=== PATIENT | male | born 1985 | race Caucasian/White ===

== ENCOUNTER 2017-06-21 20:42 | Inpatient (IN) | payer OTHER ==
[~2017-06-21] VITALS: Ht 170.2 cm; Wt 72.0 kg
[2017-06-21 20:46] VITALS: BP 117/71; PULSE 84; RESP 16; O2SAT 100
[2017-06-21] MEDS ORDERED: HYDROmorphone 1 mg/mL Inj IVPUSH PRN ×2 (20:55→23:50)
[2017-06-21] MEDS ORDERED: Ondansetron 2 mg/mL 2 mL Inj IVPUSH PRN ×2 (20:55→23:50)
--- NOTE | 2017-06-21 21:05 | ED.REPORT ---
HPI-Abd Pain M Under 40 Date of Service Jun 21, 2017 ED Provider: Dakota Gonzales MD Patient is a 32 year old male who presents to the ED complaining of lower abdominal pain onset this morning. Associated symptoms include nausea, vomiting and chills. He denies fever, diarrhea, or other symptoms at this time. The patient had taken Zofran earlier, which helped with the nausea but he was still experiencing pain. The pain been getting progressively worse since 1500. Patient states that he had a cold about a week ago but those symptoms had resolved until this morning. Nursing Notes Stated Complaint: ABDOMINAL PAIN Chief Complaint: Male Abdominal Pain Nursing Notes Reviewed: Yes Allergies: Coded Allergies: No Known Allergies (Unverified , 06/21/17) General Time Seen by MD: 21:11 Chief Complaint Abdominal pain Hx Obtained From: Patient Arrived By: Walk-in Sudden in Onset?: Yes Onset Occurred: 5 - 8 hours ago Symptom Duration: Since onset Location: : Abdomen lower Quality: Painful Severity: Current: Moderate Associated with: Reports: Chills, Nausea, Vomiting Similar Sx Previous: No Past Medical History Past Medical History none reported Past Surgical History heart ablation Social History Alcohol Use: Denies alcohol use Drug Use: Denies drug use Other Social History: Good social support, From out of town, Visiting locally Ambulatory Status Independent Review of Systems Constitutional: Reports: Chills, Denies: Fever Respiratory: Denies: Non-productive cough, Shortness of breath GI: Reports: Abdominal pain, Nausea, Vomiting, Denies: Diarrhea Complete sys rev & neg: except as marked. Skin: Denies Itching, Denies Rash Neurologic: Denies: Headache, Numbness, Weakness Physical Exam Initial Vital Signs Vital Signs (First) Date Time Temp Pulse Resp B/P Pulse Ox O2 Delivery O2 Flow Rate FiO2 06/21/17 20:46 37.4 84 16 117/71 100 Room Air Initial VS: Reviewed, Vital signs normal General/Constitutional: Awake, Alert Respiratory / Chest: Atraumatic, Breath sounds NL, Breath sounds = bilat, No respiratory distress Cardiovascular: Heart rate NL, Regular rhythm, Heart sounds NL Abdomen: Atraumatic, Soft Tenderness/Guarding/Rebound: Positive: Tender LLQ..., Tender RLQ... positive heel tap prior to arrival Back: Atraumatic, Non-tender Head / Eyes: Atraumatic, Normocephalic, PERRL, EOMI Neurologic: Oriented X3, Speech NL Upper Extremity / MS: Atraumatic, Full range of motion Skin: Atraumatic, Color NL, No rash, Warm, Dry Psychiatric: Affect NL, Mood NL Interpretation & Diagnostics Lab Results Interpretation Result Diagram: 06/21/17212806/21/172128 Test 06/21/17 21:29 White Blood Count 18.9th/mm3 (3.8-10.1) Red Blood Count 4.98mil/mm3 (4.40-5.80) Hemoglobin 14.8g/dL (13.8-17.2) Hematocrit 42.4% (41.0-50.0) Mean Corpuscular Volume 85.1fL (81-100) Mean Corpuscular Hemoglobin 29.7pg (27.0-35.0) Mean Corpuscular Hemoglobin Concent 34.9% (32.0-37.0) Red Cell Distribution Width 11.9% (12.3-15.4) Platelet Count 206bil/L (150-400) Neutrophils (%) (Auto) 90.5% (40-74) Lymphocytes (%) (Auto) 3.7% (14-46) Monocytes (%) (Auto) 5.4% (4-12) Eosinophils (%) (Auto) 0% (0-5) Basophils (%) (Auto) 0.1% (0-3) Sodium Level 136mEq/L (134-144) Potassium Level 4.1mEq/L (3.5-5.2) Chloride Level 96mEq/L (97-108) Carbon Dioxide Level 24mmol/L (18-29) Blood Urea Nitrogen 12mg/dL (6-20) Creatinine 1.02mg/dL (0.76-1.27) Estimat Glomerular Filtration Rate 90mL/min (>59) Glucose Level 144mg/dL (60-99) Calcium Level 9.6mg/dL (8.5-10.1) Magnesium Level 1.5mg/dL (1.6-2.6) Total Bilirubin 1.2mg/dL (0.0-1.2) Aspartate Amino Transf (AST/SGOT) 24U/L (0-50) Alanine Aminotransferase (ALT/SGPT) 10U/L (0-44) Alkaline Phosphatase 61U/L (25-150) Total Protein 7.8g/dL (6.4-8.4) Albumin 4.5g/dL (3.4-5.0) Lipase 57U/L (13-60) Lab Results Interpretation: Elevated white blood count CT Abd / Pelvis Interpretation CONCLUSION: Acute appendicitis without signs of perforation. These findings were discussed with Dr. Gonzales on 06/21/17 at 2240 Electronically signed by Mignon Arboleda MD Study type: Abdominal CT no contrast Interpretation / Wet Read by: Interpret - Radiologist Re-Eval/Medical Decision Med Decision/Clinical Course 32-year-old male with nausea and vomiting starting this morning at 0300 hrs. and then progressing to right lower quadrant abdominal pain by this evening. He has 19,000 white count and nonruptured acute appendicitis. Case was discussed with Dr. Crocker patient will be taken to the operating room tonight. Re-Evaluation/Progress : Time of Eval: 22:50 Re-Evaluation/Progress Note: Discussed results and plan for admit. Patient understands and agrees to plan. All questions were addressed. Consultation : Referral / Consult Name: Kt Crocker MD Consulted With: Surgeon Call Returned at: 22:45 Apns: Agrees with eval, Agrees with plan, Accepts admit Counseled Regarding: Diagnosis, Lab results, Need for admission Patient Discharge & Departure Primary Impression: Acute appendicitis Acute appendicitis type: unspecified acute appendicitis type Qualified Code: K35.80 - Unspecified acute appendicitis Additional Impression: Leukocytosis Leukocytosis type: unspecified Qualified Code: D72.829 - Elevated white blood cell count, unspecified Disposition: ADMITTED TO HOSPITAL Discharge Condition All VS Reviewed: Yes Condition: Stable Scribe Attestation Portions of this note were transcribed by Annmarie Nino. I, Dr. Gonzales personally performed the history, physical exam and medical decision-making; I reviewed and confirmed the accuracy of the information in the transcribed note. Signed by: Annmarie Osorio, 06/21/17 Dakota Gonzales MD Jun 21, 2017 21:05 Anushka Nino Jun 21, 2017 21:17
[2017-06-21] MEDS ORDERED: HYDROmorphone 0.5 mg/0.5 mL iSecure Syringe IVPUSH PRN (21:15)
[2017-06-21 21:33] LABS: BASOPHILS % (AUTO) 0.1 % (0-3); EOSINOPHILS % (AUTO) 0 % (0-5); MONOCYTES % (AUTO) 5.4 % (4-12); Mean Corpuscular Hemoglobin 29.7 pg (27.0-35.0); Mean Corpuscular Volume 85.1 fL (81-100); NEUTROPHILS % (AUTO) 90.5 % (40-74); Platelet Count 206 bil/L (150-400)
[2017-06-21 21:55] LABS: Magnesium 1.5 mg/dL (1.6-2.6)
[2017-06-21 22:52] VITALS: BP 106/57; PULSE 87; RESP 20; O2SAT 98
[2017-06-21] MEDS ORDERED: Cefotetan Inj 2,000 MG in IV Premix 1 EACH IV ONE (23:20)
[2017-06-21 23:41] VITALS: BP 106/57; PULSE 87; RESP 20; O2SAT 98
[2017-06-21] MEDS ORDERED: Lactated Ringer's 500 ML IV PRN (23:46)
[2017-06-21] MEDS ORDERED: Lactated Ringer's 1,000 ML IV SCH (23:46)
--- NOTE | 2017-06-21 23:49 | PCM.HPANE ---
Patient Data Date of Service: Jun 21, 2017 Surgeon Admitting Provider:Kt Crocker MD Attending Provider:Kt Crocker MD Primary Care Physician:Ele Other Provider:Jonathan Alston Anesthesia Reason for Visit Acute Appendicitis Ht/WT & BMI Height (Feet): 5 Height (Inches): 7 Weight (Kilograms): 70.45 Body Mass Index Allergies Coded Allergies: No Known Allergies (Unverified , 06/21/17) Past Anesthesia History Anesthesia History: Denies:: Abnormal Airway, Anesthesia Reactions, Difficult Intubation, Fam Anesthesia Reaction, Fam Malignant Hypertherm, Malignant Hyperthermia History History of ENT Problems?: No HEENT History: Denies:: Abnormal Airway Cataracts Difficult Intubation Dysphagia Glaucoma Hearing Problem Sinus Problem TMJ Denture Type: None Teeth Condition: Within Normal Limits Hx of Heart Problems?: No Cardiovascular History: Denies:: AICD Abdominal Aortic Aneurism Atrial Fibrillation Cardiac Surgery Chest Pain Congestive Heart Failure Coronary Artery Disease Edema Heart Murmur Hypertension Irregular Heartbeat Pacemaker Peripheral Vascular Rheumatic Fever Thrombophlebitis Valvular Heart Disease Hx of Respiratory Problem?: No Respiratory History: Denies:: Asthma COPD Chest Surgery Cough Dyspnea Emphysema Hemoptysis Oxygen Administration Pneumonia Pulmonary Embolism Tuberculosis Use of C-PAP Machine Use of Inhalers / NEBS Hx Neurologic Problems?: No Hx of GI Problems?: Yes Gastrointestinal History: Denies:: Cirrhosis Diverticulitis Gall Bladder Disease Gastroesphageal Reflux Gastrointestinal Bleeding Heartburn Hepatitis Hiatal Hernia Liver Disease Rectal Bleeding Other History/Comment Acute abdomen on admission Hx of Problems?: No Genitourinary History: Denies:: HX of Hemodialysis Kidney Stones Urinary Tract Infection Male Hx: Denies:: Prostate Problems Scrotal Mass Testicular Surgery Hx Musculoskeletal Problems?: No Hx Surgeries?: No Hx Alcohol Use: NoHx Substance Use: No Smoking Status: Smoker Current Status UNK Stop/Bang JOHNSON Risk Assessment: Low Risk, <3 Yes Risk Assessment Category Category 1A: Patient has history of documented sleep apnea, and HAS NOT received any narcotic, sedative or anesthesia administration during this stay. Category 1B: Patient has history of documented sleep apnea, and HAS received any narcotic , sedative or anesthesia administration during this stay Category 2: Patient has SUSPECTED Obstructive Sleep Apnea, and HAS received any narcotic , sedative or anesthesia administration during this stay. Category 3: Patient has SUSPECTED Obstructive Sleep Apnea and HAS NOT received narcotic, sedative or anesthesia administration during this stay. Category 4: Outpatient in Procedural Areas with known sleep apnea or who screen positive for High Risk via the STOP/BANG questionnaire. Exam Exam Vital Signs Vital Signs Date Time Temp Pulse Resp B/P Pulse Ox O2 Delivery O2 Flow Rate FiO2 06/21/17 22:52 87 20 106/57 98 Room Air 06/21/17 20:46 37.4 84 16 117/71 100 Room Air General Appearance: Alert, Oriented X3, Cooperative, No Acute Distress HEENT/AIRWAY: MP 2 Lungs: Clear to Auscultation, Normal Air Movement Heart: Exam Unremarkable, Regular Rate/Rhythm, No Murmurs/Rubs/Gallops Meds/Labs/Diagnostics Labs Test 06/21/17 21:29 White Blood Count 18.9th/mm3 (3.8-10.1) Red Blood Count 4.98mil/mm3 (4.40-5.80) Hemoglobin 14.8g/dL (13.8-17.2) Hematocrit 42.4% (41.0-50.0) Mean Corpuscular Volume 85.1fL (81-100) Mean Corpuscular Hemoglobin 29.7pg (27.0-35.0) Mean Corpuscular Hemoglobin Concent 34.9% (32.0-37.0) Red Cell Distribution Width 11.9% (12.3-15.4) Platelet Count 206bil/L (150-400) Neutrophils (%) (Auto) 90.5% (40-74) Lymphocytes (%) (Auto) 3.7% (14-46) Monocytes (%) (Auto) 5.4% (4-12) Eosinophils (%) (Auto) 0% (0-5) Basophils (%) (Auto) 0.1% (0-3) Sodium Level 136mEq/L (134-144) Potassium Level 4.1mEq/L (3.5-5.2) Chloride Level 96mEq/L (97-108) Carbon Dioxide Level 24mmol/L (18-29) Blood Urea Nitrogen 12mg/dL (6-20) Creatinine 1.02mg/dL (0.76-1.27) Estimat Glomerular Filtration Rate 90mL/min (>59) Glucose Level 144mg/dL (60-99) Calcium Level 9.6mg/dL (8.5-10.1) Magnesium Level 1.5mg/dL (1.6-2.6) Total Bilirubin 1.2mg/dL (0.0-1.2) Aspartate Amino Transf (AST/SGOT) 24U/L (0-50) Alanine Aminotransferase (ALT/SGPT) 10U/L (0-44) Alkaline Phosphatase 61U/L (25-150) Total Protein 7.8g/dL (6.4-8.4) Albumin 4.5g/dL (3.4-5.0) Lipase 57U/L (13-60) Plan Impression Patient chart reviewed, patient interviewed and anesthestic plan with risks, benefits, and alternatives discussed, and informed consent obtained. NPO per Anesth. Guidelines: Yes ASA Physical Status: ASA2 Plus Emergency Anesthetic Plan: GA Bene/Risks/Altern/Consents: Yes HP Complete Prior to Induction: Yes Dave Munoz DO Jun 21, 2017 23:49
[2017-06-21] MEDS ORDERED: Phenylephrine 10,000 mCg/mL Inj IVPUSH PRN (23:50)
[2017-06-21] MEDS ORDERED: Atropine 0.4 mg/mL Inj IVPUSH PRN (23:50)
[2017-06-21] MEDS ORDERED: EPHEDrine Sulfate 50 mg/mL Inj IVPUSH PRN (23:50)
[2017-06-21] MEDS ORDERED: Labetalol 5 mg/mL 20 mL Inj IV PRN (23:50)
[2017-06-21] MEDS ORDERED: Dexamethasone 4 mg/mL Inj IVPUSH PRN (23:50)
[2017-06-21] MEDS ORDERED: MetoCLOpramide 5 mg/mL 2 mL Inj IVPUSH PRN (23:50)
[2017-06-21] MEDS ORDERED: fentaNYL-PF 50 mCg/mL 2 mL Inj IVPUSH PRN (23:50)
--- NOTE | 2017-06-21 23:54 | HP ---
[address] [address] HISTORY AND PHYSICAL PATIENT: JAY RADER : 1985 MR#: [id number] ADMIT: 06/21/2017 JOB ID: [id number] CHIEF COMPLAINT: The patient is a 32-year-old man with probable appendicitis. HISTORY OF PRESENT ILLNESS: The [place] from [place], is friends with one of our ER physicians who treated him for nausea with Zofran beginning this morning. Around 3 p.m., he continued to be nauseated and as well had abdominal pain, and he was brought to our emergency department where a CT scan has suggested appendicitis. PAST MEDICAL HISTORY: Negative per the patient, no previous surgery, though there is a record in the ED note of a cardiac surgical ablation. MEDICATIONS: None. ALLERGIES: None. SOCIAL HISTORY: The patient lives up in [facility]. 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 He rode down with some other people from [place] but will get a ride back from an [place] friend. FAMILY HISTORY: Noncontributory. REVIEW OF SYSTEMS: Negative per ED note. PHYSICAL EXAMINATION: Uncomfortable man in no acute distress. Vital signs: Recorded in the chart. His temperature is 37.4, his pulse is in the 80s. His blood pressure was recorded at 117/71. His sclerae are clear. His neck is supple. Lungs are clear. Heart sounds are regular. He has markedly lower abdominal tenderness, by report. LABORATORY DATA: White count is 18.9, hematocrit is 42, platelet count is 206. Chemistries are normal. Glucose is 144, magnesium was 1.5. LFTs are normal. Lipase is normal. CT scan: I have reviewed the images as well as the date night caregiver report. The report describes the appendix coursing to the deep right pelvis with a distended appendix of 1.22 cm and periappendiceal fat stranding with the conclusion of acute appendicitis without signs of perforation. I have reviewed the films myself. I concur that there is some periappendiceal fat stranding, though I am also concerned that there appears to be calcifications in the GI tract lumen that from the emergency department tells me the date night caregiver radiologist whom he discussed the case with felt that these were some sort of ingested material. We can see these up in the ascending colon and cecum, and it is possible that there is an appendicolith though it is difficult to say exactly which loop is the base of the appendix. IMPRESSION AND PLAN: Probable appendicitis. I have recommended a laparoscopic appendectomy. Patient agrees to proceed. We will move ahead tonight. He will receive perioperative cefotetan.
[2017-06-22] VITALS (22 sets, daily range): BP systolic 96–129; BP diastolic 40–58; PULSE 60–83; RESP 10–17; O2SAT 93–100
[2017-06-22] MEDS ORDERED: Bupivacaine-MPF 0.5% 30 mL Inj INFILTRATE ONE (00:35)
[2017-06-22] MEDS ORDERED: Lactated Ringer's 1,000 ML IV ONE ×2 (00:35→02:15)
[2017-06-22] MEDS ORDERED: Ondansetron 2 mg/mL 2 mL Inj IVPUSH PRN (01:05)
[2017-06-22] MEDS ORDERED: diphenhydrAMINE 25 mg Capsule PO PRN (01:05)
[2017-06-22] MEDS ORDERED: HYDROmorphone 0.5 mg/0.5 mL iSecure Syringe IV PRN (01:05)
[2017-06-22] MEDS ORDERED: Polyethylene Glycol (PEG) 17 Gm Powder PO ONE (01:05)
[2017-06-22] MEDS ORDERED: Acetaminophen IV 1,000 MG in IV Premix 1 EACH IV PRN (01:05)
--- NOTE | 2017-06-22 01:45 | OP ---
[address] [address] OPERATIVE REPORT PATIENT: JAY RADER : 1985 MR#: [id number] ADMIT: 06/21/2017 JOB ID: [id number] DATE OF SURGERY: 06/22/2017 PREOPERATIVE DIAGNOSIS(ES): Appendicitis. POSTOPERATIVE DIAGNOSIS(ES): Perforated appendicitis. SURGEON: Kt Crocker MD PROCEDURE: Laparoscopic appendectomy for ruptured appendicitis. INDICATIONS: A 32-year-old male, who presents with signs and symptoms of appendicitis. FINDINGS: Acute appendicitis with perforation. PROCEDURE IN DETAIL: Patient brought to the operating room. General anesthetic was administered. The SCOPE protocol was followed. He had received perioperative cefotetan. Surgical time-out was performed. The abdomen was prepped and draped in sterile fashion, and we obtained access with a Veress needle. Three ports were placed. Upon surveillance of the abdomen, there was free fluid in the pelvis, and a great deal of fibrinous exudate in the pelvis and in the right lower quadrant. We elevated the appendix, and there was a central area of necrosis with perforation but without gross feculent soilage. We elevated the appendix and used a single firing of the endoscopic stapler to go across the base of the appendix and the mesoappendix. Specimen was placed in a bag and removed without wound contamination. We touched up the hemostasis on the mesoappendix with cautery. Our staple line was intact. We now suctioned out all of the fluid and then proceeded with a copious amount of irrigation, irrigating out most of the fibrinous exudate and removing what appeared to be contaminated fluid. After copious irrigation, removed all our irrigation and placed a drain going down past appendiceal stump into the pelvis and brought that out through the left lower quadrant incision that was secured with a nylon suture. We now let our CO2 out after removing our ports under laparoscopic vision. I secured the drain with a nylon suture and placed it to bulb suction. I closed the 12-mm port at the fascial level with an 0 Vicryl followed by subcuticular Monocryl. Dressings were placed. The patient was transferred to the recovery room after extubation.
[2017-06-22] MEDS ORDERED: Piperacillin-Tazo 3.375 Gm Inj 3.375 GM in Dextrose 5% Minibag Plus 50 ML IV ONE (02:00)
[2017-06-22] MEDS: Lactated Ringer's 1,000 ML IV SCH ×3 (03:05→21:05)
--- NOTE | 2017-06-22 04:19 | NUR ---
post-op pt arrived to [facility] room 1026 at 0320. he was able to scoot himself from the gurney to the hospital bed unassisted. per PACU report pt took some time to wake up in recovery and they felt pt was narcotic naive and they recommended using narcotics with caution. upon arrival pt awake and oriented, able to follow commands and answer all questions but does still appear sedated. when pt falls asleep he is requiring 4L of 02 to keep oxygen level above 92% and respirations are 10-12/min. PSYCHIATRIC THERAPIST is on to monitor oxygen levels. nurse explained the importance of coughing and deep breathing and pt demonstrated.pt denies any pain so no further narcotics will be given at this time. he is tolerating clear liquids without any sign of nausea. admit complete. pt oriented to room, call light and bed controls. care continues.
[2017-06-22 06:24] LABS: BASOPHILS % (AUTO) 0 % (0-3); EOSINOPHILS % (AUTO) 0 % (0-5); MONOCYTES % (AUTO) 4.4 % (4-12); Mean Corpuscular Hemoglobin 30.2 pg (27.0-35.0); Mean Corpuscular Volume 86.5 fL (81-100); NEUTROPHILS % (AUTO) 92.4 % (40-74); Platelet Count 170 bil/L (150-400)
--- NOTE | 2017-06-22 07:20 | NUR ---
pt 02 titrated down to 2L. SP02 MID 90s at this time. will continue to titrate.
--- NOTE | 2017-06-22 08:20 | DRSVH ---
PROCEDURE: CT ABDOMEN AND PELVIS WITH CONTRAST ([id number]) INDICATIONS: RLQ abd pain TECHNIQUE: After the administration of intravenous contrast, 5 mm thick sections acquired from the diaphragm to the symphysis. 5 mm coronal and sagittal reformats were acquired. For radiation dose reduction, the following was used: automated exposure control, adjustment of mA and/or kV according to patient siz e. COMPARISON: None. FINDINGS: Image quality: Excellent. ABDOMEN: Lung bases: Lung bases are clear. Heart size is normal. Solid organs: Liver and spleen are normal in size and enhancement. A small, approximately 6 mm in di ameter hypoattenuating lesion noted in the spleen which likely represents a small cyst or hemangioma. Gallbladder is within normal limits. Biliary system is non dilated. Pancreas enhances normally. No adrenal nodules. Kidneys demonstrate normal size and enhancement, without hydronephrosis. Peritoneum and bowel: Bowel loops demonstrate normal wall thickness and caliber. No free air. The a ppendix is enlarged 1.2 cm in diameter at its base. Mild inflammatory changes noted just to the appen uday. Small amount of free fluid noted in the lower pelvis. Nodes and vessels: No retroperitoneal or mesenteric adenopathy by size criteria. Aorta and inferior vena cava are normal in size. Miscellaneous: No ventral hernias. PELVIS: Genitourinary: Bladder wall thickness is normal. Miscellaneous: No inguinal hernias or adenopathy. Bones: No suspicious bony lesions. No vertebral body compression fractures. IMPRESSION: 1. Findings compatible with acute appendicitis. 2. No free air. 3. Small amount of free fluid in the lower pelvis. Dictated by: Cassandra Rodgers MD, PhD on 06/22/2017 at 8:12 Approved by: Cassandra Rodgers MD, PhD on 06/22/2017 at 8:19
[2017-06-22] MEDS ORDERED: Rocuronium 10 mg/mL 5 mL Inj ONE (10:11)
[2017-06-22] MEDS ORDERED: HYDROmorphone 1 mg/mL Inj ONE (10:11)
[2017-06-22] MEDS ORDERED: Propofol 10,000 mCg/mL 20 mL Inj ONE (10:11)
[2017-06-22] MEDS ORDERED: fentaNYL-PF 50 mCg/mL 2 mL Inj ONE (10:11)
[2017-06-22] MEDS ORDERED: Ketamine 10 mg/mL 20 mL Inj ONE (10:11)
[2017-06-22] MEDS: Piper-Tazo 3.375 Gm/50 mL D5W Minibag Plus - Q8H over 4 hrs IV SCH ×4 (10:12→17:50)
--- NOTE | 2017-06-22 11:38 | PCM.PNSURG ---
Subjective Date of Service: Jun 22, 2017 Visit Information: Reason for Visit Acute Appendicitis Surgery/Surgery Date LAP APPY 06/22/17 Post-Op Day # Date of Admission: Jun 21, 2017 at 23:31 Hospital Day # Subjective: No acute overnight events Pain improved compared to pre-op No nausea or vomiting Tolerating clear liquids Has not yet voided Afebrile but feels warm/diaphoretic Objective Vital Sign- Last 8 Hours Date Time Temp Pulse Resp B/P Pulse Ox O2 Delivery O2 Flow Rate FiO2 06/22/17 08:51 79 16 96 Room Air 06/22/17 08:37 36.6 71 16 96/57 97 Room Air 06/22/17 08:27 Supplement Oxygen 06/22/17 05:44 36.8 73 16 119/56 Nasal Cannula 2.00 99 Intake and Output- Last 8 Hour 06/22/17 Cumulative From/Thru 07:00 06/21/17 20:46 - 06/22/17 06:19 Intake Total 1630 ml 3630 ml Output Total 195 ml 195 ml Balance 1435 ml 3435 ml Intake Oral 400 ml 400 ml IV Total 1230 ml 3230 ml Output Drainage Total 190 ml 190 ml Estimated Blood Loss 5 ml 5 ml General: Alert, Cooperative, No Acute Distress Neck: Supple Lungs: Normal Air Movement Abdomen: Other (Soft, appropriately tender, nondistended. GABRIELLE drain with serosanguinous output. Lap incisions x3 covered with clean bandage. ) Result Diagram: 06/22/17 0545 06/21/172128 Assessment & Plan Impression POD#1 s/p laparoscopic appendctomy for acute perforated appendicitis Problems: Plan Neuro: Pain control with apap and oxycodone CV/pulm: Enocuarge IS and ambulation. ASHLEE GI: GABRIELLE drain remains. WBC increased today so will continue IV antibiosis and maintain patient on CLD. PRN anti-emetics available. Renal: Awaiting void Heme/ID: Continue zosyn until WBC downtrends or normalizes Prophy: SQH Activity: Up ad joelle Dispo: Floor. Likely home in 1-3 days Oleg Marcial MD Jun 22, 2017 11:38
--- NOTE | 2017-06-22 16:15 | NUR ---
Activity/Pain/GI Pt up and ambulating the hallway twice today. Steady gait. Tolerating activity well. Pt rates pain between 2-3/10. Offered pt Tylenol or Motrin. Pt declined any pain medication. After breakfast had a little nausea. PO zofran given with relief. Tolerating clear liquid diet for lunch. Care continues.
[2017-06-23] MEDS: Piper-Tazo 3.375 Gm/50 mL D5W Minibag Plus - Q8H over 4 hrs IV SCH ×6 (02:20→17:43)
--- NOTE | 2017-06-23 03:47 | NUR ---
Pain Patient ambulates to bathroom independently. IV infusing ABX and NS TKO, stop LR due to poss interaction with zosyn. Patient states pain during cough and some during ambulation, given motrin for pain. Guest remains in room, sleeping on fold out bed. Patient states no SOB or chest pain. Cough r/t sore throat postop. Encouraged fluids po, remains on clear liquid diet. Care continues
[2017-06-23 05:46] LABS: BASOPHILS % (AUTO) 0.1 % (0-3); EOSINOPHILS % (AUTO) 0 % (0-5); MONOCYTES % (AUTO) 5.9 % (4-12); Mean Corpuscular Hemoglobin 30.2 pg (27.0-35.0); Mean Corpuscular Volume 87.1 fL (81-100); NEUTROPHILS % (AUTO) 87.4 % (40-74); Platelet Count 168 bil/L (150-400)
[2017-06-23 06:25] VITALS: BP 130/65; PULSE 69; RESP 16; O2SAT 96
[2017-06-23] MEDS: Lactated Ringer's 1,000 ML IV SCH ×2 (07:05→17:05)
--- NOTE | 2017-06-23 08:29 | PCM.PNSURG ---
Subjective Date of Service: Jun 23, 2017 Date of Service: Jun 23, 2017 Visit Information: Reason for Visit Acute Appendicitis Surgery/Surgery Date LAP APPY 06/22/17 Post-Op Day # 1 Status post laparoscopic appendectomy for ruptured appendicitis Date of Admission: Jun 21, 2017 at 23:31 Hospital Day # Subjective: No overnight events. Denies significant related pain, nausea, or vomiting; is tolerating a clear liquid diet & passing flatus. Postop General: No Complaints Gastrointestinal: Good Appetite, No N/V, Passing Flatus Pain Management: No or Minimal Pain Postop Activity: Ambulating Independently Objective Vital Sign- Last 8 Hours Date Time Temp Pulse Resp B/P Pulse Ox O2 Delivery O2 Flow Rate FiO2 06/23/17 06:25 37.0 69 16 130/65 96 Room Air Intake and Output- Last 8 Hour 06/23/17 Cumulative From/Thru 07:00 06/21/17 20:46 - 06/23/17 06:25 Intake Total 757 ml 6196 ml Output Total 1160 ml 2565 ml Balance -403 ml 3631 ml Intake Oral 600 ml 2077 ml IV Total 157 ml 4119 ml Output Urine Total 1150 ml 2350 ml Drainage Total 10 ml 210 ml Estimated Blood Loss 5 ml # Bowel Movements 0 0 General: Alert, Oriented X3, Cooperative, No Acute Distress Lungs: Clear to Auscultation Heart: Exam Unremarkable Abdomen: Soft, Appropriately tender, Non-distended SURGICAL WOUND : Wound General Appearence: Steri Strips, Intact, Well Approximated, No Erythema, No Discharge, No Inflammatory Changes Dressing & Drainage Status: Intact Wound Drainage Type: GABRIELLE Drain #1 (40 mL serosanguineous fluid) Extremities: Thigh&Calf Soft/Nontender Neuro: Normal Speech Result Diagram: 06/23/17 0506/23/17 0523 Assessment & Plan Impression Primary Diagnosis: 1. Perforated appendicitis 2. Status post laparoscopic appendectomy for ruptured appendicitis - Leukocytosis is improving on Zosyn with viable GABRIELLE drain. Other Medical & Surgical History: Possible history of cardiac arrhythmia History of cardiac ablation Problems: Plan 1. Advanced to full liquid diet 2. Continue IV antibiotics 3. Repeat a.m. labs 4. Hold GABRIELLE drain per protocol 5. Continue pain management when necessary Pain Management: IV hydromorphone, PO acetaminophen & oxycodone when necessary VTE Prophylaxis: Wes Cole PA-C Jun 23, 2017 08:28
[2017-06-23 09:07] VITALS: BP 115/67; PULSE 64; RESP 18; O2SAT 96
--- NOTE | 2017-06-23 09:13 | NUR ---
Social Work- Screening/Readiness for D/C D: EMR reviewed. Pt is a 32 y/o male admitted for acute appendicitis per H&P. Pt's insurance is [employer]. Pt's PCP is in . Pt's readmit risk score is 0/8, no risk. SW met with pt at bedside regarding discharge plan, SW role explained. Pt alert and oriented x3. 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 Pt is independent with ADLs and self-care. Pt drives. Pt declined information about DPOA. Pt confirms that his friend will transport him back to when medically ready. No d/c needs. SW will follow . Assessment: Pt who is independent with ADLs and self-care Plan: Pt's friend to transport home when medically ready, no d/c needs anticipated. SW will follow. SHRUTI Perez
[2017-06-23 13:58] VITALS: BP 114/73; PULSE 64; RESP 18; O2SAT 98
--- NOTE | 2017-06-23 19:01 | NUR ---
Post op day #2- Patient denies incision pain, but has discomfort when coughing. Refuses pain med when offered. Medicated with Zofran x 1 for nausea with good relief. Up ambulating in hallway. Passing flatus. Taking mostly liquids throughout the day, and solid food slowly.
[2017-06-23 20:52] VITALS: BP 114/67; PULSE 51; RESP 18; O2SAT 95
[2017-06-24 01:04] VITALS: BP 114/62; PULSE 49; RESP 16; O2SAT 98
[2017-06-24] MEDS: Piper-Tazo 3.375 Gm/50 mL D5W Minibag Plus - Q8H over 4 hrs IV SCH ×4 (03:05→10:56)
[2017-06-24] MEDS: Lactated Ringer's 1,000 ML IV SCH ×2 (03:05→13:05)
[2017-06-24 05:00] VITALS: BP 108/67; PULSE 50; RESP 16; O2SAT 98
--- NOTE | 2017-06-24 05:51 | NUR ---
Lack of appetite Minimal appetite and he consumed <10% of dinner meal, one additional pudding snack. Patient states no nausea. Pain treated with PO APAP, patient also has low grade fever intermittently- no complaints of fever or chills. Scant output in GABRIELLE. Persistant weak dry cough, no reports of SOB or chest pain. Friend rooming in. Care continues
[2017-06-24 06:49] LABS: BASOPHILS % (AUTO) 0.2 % (0-3); EOSINOPHILS % (AUTO) 0.6 % (0-5); MONOCYTES % (AUTO) 9.3 % (4-12); NEUTROPHILS % (AUTO) 79.4 % (40-74); Platelet Count 172 bil/L (150-400)
[2017-06-24 09:39] VITALS: BP 116/74; PULSE 58; RESP 18; O2SAT 98
--- NOTE | 2017-06-24 11:20 | PCM.PNSURG ---
Subjective Date of Service: Jun 24, 2017 Date of Service: Jun 24, 2017 Visit Information: Reason for Visit Acute Appendicitis Surgery/Surgery Date LAP APPY 06/22/17 Post-Op Day # 2 Status post laparoscopic appendectomy for ruptured appendicitis Date of Admission: Jun 21, 2017 at 23:31 Hospital Day # Subjective: Reports nausea overnight while advancing diet that has since resolved. Denies bowel movement or passing gas today. Had flatus yesterday. Has mild surgical- related pain. Does not feel ready to go home to [place] today. Gastrointestinal: Good Appetite, No N/V Pain Management: Good Pain Control Postop Activity: Ambulating Independently Objective Vital Sign- Last 8 Hours Date Time Temp Pulse Resp B/P Pulse Ox O2 Delivery O2 Flow Rate FiO2 06/24/17 09:39 36.4 58 18 116/74 98 Room Air 06/24/17 05:00 36.7 50 16 108/67 98 Room Air Intake and Output- Last 8 Hour 06/24/17 Cumulative From/Thru 07:00 06/21/17 20:46 - 06/24/17 06:21 Intake Total 611 ml 7744 ml Output Total 800 ml 4370 ml Balance -189 ml 3374 ml Intake Oral 526 ml 3540 ml IV Total 85 ml 4204 ml Output Urine Total 800 ml 4150 ml Drainage Total 0 ml 215 ml Estimated Blood Loss 5 ml # Voids 1 1 # Bowel Movements 0 1 General: Alert, Oriented X3, Cooperative, No Acute Distress Lungs: Clear to Auscultation Heart: Exam Unremarkable Abdomen: Appropriately tender, Non-distended Extremities: Thigh&Calf Soft/Nontender Neuro: Normal Speech Result Diagram: 06/24/17 0602 06/24/17 0500 Assessment & Plan Impression Primary Diagnosis: 1. Perforated appendicitis 2. Status post laparoscopic appendectomy for ruptured appendicitis - Leukocytosis resolved on Zosyn with viable GABRIELLE drain; but not feeling well enough to go home today. Other Medical & Surgical History: Possible history of cardiac arrhythmia History of cardiac ablation Problems: Plan 1. Continue general diet with anti-Intermedics as needed 2. Continue IV antibiotics 3. Repeat a.m. labs 4. Hold GABRIELLE drain per protocol 5. Continue pain management when necessary 6. Consider discharge tomorrow Pain Management: IV hydromorphone, PO acetaminophen & oxycodone when necessary VTE Prophylaxis: Wes Cole PA-C Jun 24, 2017 11:20
--- NOTE | 2017-06-24 15:11 | PCM.DISURG ---
Surgical Discharge Instruction Date of Service Jun 24, 2017 Dates of Hospitalization Date of Hospital Admission Jun 21, 2017 at 23:31 Providers Admitting Physician: Kt Crocker MD Primary Care Physician: Nopisrael Attending Physician: Kt Crocker MD Diet Discharge Diet: No restrictions Activity Discharge Activity-General: Be up and about, Activity as pain allows, No lifting >15 pounds for 2 weeks, No driving while taking narcotic Dressing and Incisional Care Dressing Care: Allow Steri Stripes to fall off, Remove outer dressing after 24 hrs Hygiene: May shower, DO NOT soak incision under water, NO bathtub, hot tub or whirlpool Follow Up Plan Follow Up Plan Call at any time with questions or concerns. Call your provider for: Fever, Increasing abdominal pain, Nausea, Vomiting, Wound redness, Discharge @ incision, pus discharge Oleg Marcial MD Jun 24, 2017 15:11
[2017-06-24] MEDS ORDERED: POLY17PO6 PO (15:14)
[2017-06-24] MEDS ORDERED: AMOX-366 PO (15:14)
[2017-06-24] MEDS ORDERED: OXYC5TAB72 PO (15:14)
[2017-06-24] MEDS ORDERED: Acetaminophen PO (15:14)
[2017-06-24] MEDS ORDERED: ONDA4TAB12 PO (15:14)
[2017-06-24] MEDS ORDERED: Ibuprofen PO (15:14)
--- NOTE | 2017-06-24 15:23 | NUR ---
Social Work- Screening/Readiness for D/C D: EMR reviewed. Pt is a 32 y/o male admitted for acute appendicitis per H&P. Pt to discharge today, discharge orders are active. Pt has been observed ambulating independently in the halls. SW spoke with pt, pt confirms that his friend will transport him back to when medically ready. No d/c needs. Assessment: Pt who is independent with ADLs and self-care Plan: Pt's friend to transport home when medically ready, no d/c needs. Dorothea Mcconnell MSW
--- NOTE | 2017-06-24 15:30 | PCM.DC.SUR ---
Discharge Summary Date of Service: Jun 24, 2017 Date of Hospital Admission: Jun 21, 2017 at 23:31 Date of Operation(s): 06/22/2017 Date of Discharge: 06/24/2017 Diagnosis at Time of Discharge Primary Diagnoses: 1. Acute perforated appendicitis 2. Status post laparoscopic appendectomy for ruptured appendicitis Problems: Operation Laparoscopic appendectomy Brief History and Physical: The [place], is friends with one of our ER physicians who treated him for nausea with Zofran beginning this morning. Around 3 p.m., he continued to be nauseated and as well had abdominal pain, and he was brought to our emergency department where a CT scan has suggested appendicitis. Hospital Course: The patient was admitted with a history, presentation, & workup consistent with the above listed diagnoses & underwent the above-mentioned surgical procedure without complication. See operative report for details of the procedure. After the surgery the patient convalesced appropriately. The surgical recovery was as expected & uneventful. Bowel function returned on postoperative day #1. The patient was stable for discharge on postoperative day #2. At the time of discharge the patient was voiding without difficulty, exhibiting signs of bowel function, tolerating a general diet without nausea or vomiting, having only mild pain controlled with minimal by mouth analgesics, ambulating without assistance, with clean, dry, & intact surgical wounds without signs of significant infection, inflammation, &/or hematoma. We discussed and the patient verbalizes understanding all of the postoperative care & medication and instructions, follow-up, and would seek immediate medical attention. All questions were answered. Pathology: Pending. Disposition: Home in stable condition on postoperative day #2. Follow-up Plan: Follow-up &/or seek immediate medical attention as planned or we will needed. ([Acetaminophen]) 325 MG TABLET 650 MG PO Q6H ([Ibuprofen]) 200 MG TABLET 600 MG PO Q6 hours Amoxicillin/Clav K 875-125 mg (Augmentin 875-125 mg) 1 Each Tablet 1 TABLET PO BID Ondansetron ODT (Ondansetron ODT) 4 Mg Tab.rapdis 4 MG PO q8 hours PRN PRN For Nausea/Vomiting Polyethylene Glycol 3350 (Miralax) 17 Gm Powd.pack 17 GM PO BID PRN PRN For Constipation oxyCODONE (oxyCODONE) 5 Mg Tablet 5 MG PO Q4H PRN PRN For Moderate Pain Discharge Medications: See above Wes Barnes PA-C Jun 24, 2017 15:30
--- NOTE | 2017-06-24 16:25 | PATH ---
SURGICAL PATHOLOGY Attending Physician:Kt Crocker MD CASE STATUS: Signed Out PATIENT NAME: JAY RADER PID: [id number] : 1985 DATE COLLECTED:06/22/2017 00:00 SPECIMEN: Appendix CLINICAL HISTORY: APPENDICITIS 1). APPENDIX FINAL DIAGNOSIS: Appendix, Appendectomy: - Acute appendicitis with serositis and transmural neutrophilic inflammation consistent with perforation. - Negative for neoplasm. ICD10: K35.3 GROSS DESCRIPTION: The specimen is received in one formalin filled container labeled with the patient's name, sublabeled "appendix" and consists of one cylinder of echevarria appendix measuring 7.0 x 1.0 x 1.0 CM. The serosal surface is light echevarria, slightly rough. There is a large amount of attached fatty tissue. Sectioning reveals a wall to be thickened to 0.2-0.3 CM. The lumen contains a light rodriguez semisolid to friable material. Rep. sections including the tip (sectioned longitudinally), proximal margin (inked blue), and random cross sections are submitted in one cassette. 06/22/2017SD ICD-9 CODES: CPT CODES: 1: 61336 Electronically Signed Out Jordi Fields MD [facility] [address], [place] [address] Technical component performed at [facility], [address] [place] [address] Ave[address], [place], [address]
--- NOTE | 2017-06-24 17:05 | NUR ---
Meal Intake Patient tolerated breakfast and lunch well, with no complaint of increased pain or nausea. Patient ate 100% of each meal.
--- NOTE | 2017-06-24 17:06 | NUR ---
GABRIELLE Drain Discontinued GABRIELLE drain discontinued per provider orders. Patient tolerated drain removal well. Drain removal site stable, dressing CDI.
--- NOTE | 2017-06-24 17:07 | NUR ---
Discharge Orders for discharge were received. The patient was made aware of the plan for discharge and was agreeable to go. The patient was given information and teaching on his diagnosis and treatment, signs and symptoms to be aware of, information on when to call as well as instruction to call whenever he may have a question regarding his care, scripts for new medications and teaching as well as physical handouts on that information. The patient signified understanding of this information, verified using the teach-back method. Prior to discharge patient reports having three small bowel movements. The patient's asymptomatic IV was then removed intact without incident. The patient then dressed in his own clothing and his belongings were gathered. The patient ambulated to the main entrance where he entered a private vehicle driven by a friend. At the time of discharge the patient was alert and oriented, with pain at a tolerable level, nausea free and with surgical and GABRIELLE removal sites clean, dry and intact.
== END 2017-06-24 16:45 | disposition home or self-care (01) | DRG 340 ==
LOC: SED 20:42 → OBSVTOIN 23:31 → OSC 23:31
PROVIDERS: ADMIT Surgery; ATTEND Surgery
PROC: 0DTJ4ZZ Resection of Appendix, Percutaneous Endoscopic Approach (ICD-10-PCS; principal; 2017-06-22)
DX: K35.2 Acute appendicitis with generalized peritonitis (principal)